=== PATIENT | female | born 1980 | race Caucasian/White ===

== ENCOUNTER 2019-01-31 14:39 | Emergency (ER) | payer OTHER ==
[~2019-01-31] VITALS: Ht 172.7 cm; Wt 92.5 kg
[~2019-01-31 14:39] MED LIST: FOLIC ACID; VITAMIN
[2019-01-31] MEDS ORDERED: AMLODIPINE BESY10 MG PO (14:51)
[2019-01-31] MEDS ORDERED: ALBU90OI INH (14:51)
[2019-01-31] MEDS ORDERED: Zantac150 MG PO (14:51)
[2019-01-31] MEDS ORDERED: Pepcid20 MG PO (15:08)
== END 2019-01-31 15:03 | disposition home or self-care (01) ==
LOC: ER 14:39
DX: J45.909 Unspecified asthma, uncomplicated (principal)
CPT/HCPCS: 99281